=== PATIENT | male | born 1960 | race Caucasian/White ===

== ENCOUNTER 2023-06-16 18:24 | Emergency (ER) | payer SELFPAY ==
[~2023-06-16] VITALS: Ht 172.7 cm; Wt 91.0 kg
[2023-06-16 18:38] VITALS: O2SAT 98
[2023-06-16] MEDS: AMLODIPINE 5MG TABLET PO ONE (19:17)
[2023-06-16] MEDS: ACETAMINOPHEN 325MG TABLET PO ONE (19:17)
[2023-06-16] MEDS ORDERED: NAPR220C61 MT (21:29)
[2023-06-16 21:39] VITALS: BP 178/86; PULSE 64; RESP 18; TEMP 98.2
== END 2023-06-16 21:59 | disposition home or self-care (01) ==
LOC: ER 18:24
DX: S09.90XA Unspecified injury of head, initial encounter (principal); I10 Essential (primary) hypertension; G89.11 Acute pain due to trauma; W18.39XA Other fall on same level, initial encounter; Y93.89 Activity, other specified; Y92.89 Other specified places as the place of occurrence of the external cause; Y99.8 Other external cause status
CPT/HCPCS: 99284